=== PATIENT | female | born 1950 | race African-American/Black ===

== ENCOUNTER → 2018-11-17 | Day surgery (SDC) | payer OTHER ==
[~2018-11-17] MED LIST: ATOR20TA58 PO; CALC-157 PO; IV RINGERS SOLUTION,LACTATED 1,000 ML IV SCH; LOSA25TA PO; PROPOFOL 10,000 MCG/ML (20ML) VIAL IV ONE; PROPOFOL 40 ML IV ONE; fentaNYL PF 250 MCG/5 ML VIAL IV ONE
[2018-11-17 10:21] VITALS: BP 111/67
--- NOTE | 2018-11-20 14:08 | PATHOLOGY ---
[facility] Accession Number: [id number] . 01 Material submitted: . PART A: stomach - ANTRUM PART B: colon - TRANSVERSE COLON X2. Modifiers: transverse . 01 Clinical history: . GERD . 02 Diagnosis: A. Gastric biopsies, antrum: - Active chronic gastritis, moderate, with Helicobacter organisms identified. . B. Colon biopsies, transverse colon x2: - Tubular adenomas. (JPM:delbert; 11/20/2018) QMS 11/20/2018 0914 Local . 02 Comment: Sections of the gastric antral biopsy show congestion and moderate active chronic inflammation. A properly controlled immunoperoxidase stain for Helicobacter reveals focally prominent numbers of Helicobacter organisms. . Sections of the transverse colon biopsy reveal tubular adenomas showing no high grade dysplasia or evidence of malignancy. (JPM:delbert; 11/20/2018) . . Special stain performed: Immunoperoxidase stain for Helicobacter on A1. . 02 Electronically signed: . Reuben Ignacio MD, Pathologist NPI- [id number] . 01 Gross description: . A. Received in formalin labeled "Yasmeen Angulo, antrum," are 2 segments of brunner soft tissue measuring 0.9 x 0.3 x 0.2 cm in aggregate dimensions and ranging from 0.4 to 0.5 cm in maximum dimension. The specimen is submitted entirely in cassette A1. . B. Received in formalin labeled "Yasmeen Angulo, transverse colon polyp x2," are 2 segments of brunner soft tissue measuring 0.9 x 0.3 x 0.3 cm in aggregate dimensions and ranging from 0.4 to 0.5 cm in maximum dimension. The specimen is submitted entirely in cassette B1. (TSD; 11/17/2018) TOB/TOB 11/17/2018 1759 Local . 02 Pathologist provided ICD-10: K29.50, D12.3 . 02 CPT . 756379, 072095, D91016 Specimen Comment: A courtesy copy of this report has been sent to Specimen Comment: [phone], . Specimen Comment: Report sent to / DR MILLS Performed at: [address] [facility], [place] [id number] MD Dewayne Moeller MD Phone: [phone] Performed at: [facility] [address] [place], [place] [id number] MD Reuben Ignacio MD Phone: [phone]
== END ==
LOC: SURG 08:04
PROVIDERS: ATTEND Internal Medicine Gastroenterology
DX: Z12.11 Encounter for screening for malignant neoplasm of colon (principal); K21.0 Gastro-esophageal reflux disease with esophagitis; K29.50 Unspecified chronic gastritis without bleeding; D12.3 Benign neoplasm of transverse colon; K44.9 Diaphragmatic hernia without obstruction or gangrene; K26.9 Duodenal ulcer, unspecified as acute or chronic, without hemorrhage or perforation; K57.10 Diverticulosis of small intestine without perforation or abscess without bleeding; K29.00 Acute gastritis without bleeding; K57.30 Diverticulosis of large intestine without perforation or abscess without bleeding; I10 Essential (primary) hypertension; E66.3 Overweight; Z68.26 Body mass index [BMI] 26.0-26.9, adult; Z72.89 Other problems related to lifestyle
CPT/HCPCS: 43239; 45380; 88305; 88342; J2704; J3010; J7120